=== PATIENT | female | born 1930 | race Hispanic/Latino ===

== ENCOUNTER 2022-01-20 18:24 | Observation (INO) | payer OTHER ==
[~2022-01-20] VITALS: Ht 152.4 cm; Wt 57.8 kg
[2022-01-20 19:00] LABS: BASOPHILS % (AUTO) 0.5 % (0.0-5.0); EOSINOPHILS % (AUTO) 2.5 % (0.0-8.0); LYMPHOCYTES % (AUTO) 21.2 % (21.0-51.0); MEAN CORPUSCULAR HEMOGLOBIN 32.2 pg (27.0-33.0); MEAN CORPUSCULAR HGB CONC 32.6 g/dL (32.0-36.0); MEAN CORPUSCULAR VOLUME 98.7 fL (79-99); MONOCYTES % (AUTO) 7.7 % (3.0-13.0); NEUTROPHILS % (AUTO) 67.9 % (40.0-77.0); PLATELET COUNT (AUTO) 230 K/uL (130-400); RED BLOOD CELL COUNT(AUTO) 3.95 MIL/uL (4.00-5.50); RED CELL DISTRIBUTION WIDTH 13.2 % (11.0-15.5); WHITE BLOOD COUNT (AUTO) 8.2 K/uL (4.8-10.8)
[2022-01-20 19:09] LABS: CREATININE 2.1 mg/dL (0.5-1.5); POTASSIUM 4.7 mmol/L (3.5-5.1)
[2022-01-20 19:18] LABS: INR 1.06 (0.85-1.15); PROTHROMBIN TIME 11.5 SEC (9.6-11.6)
[2022-01-20 19:19] LABS: PARTIAL THROMBOPLASTIN TIME 27.8 SEC (26.3-35.5)
[2022-01-21] VITALS (11 sets, daily range): BP systolic 106–153; BP diastolic 46–78
[2022-01-21] MEDS ORDERED: CEFAZOLIN SODIUM 2 GM in 0.9%NACL 50ML 50 ML IV PRN (08:30)
[2022-01-21] MEDS ORDERED: METO-409 PO (10:56)
[2022-01-21] MEDS ORDERED: FURO20TA4 PO (10:57)
[2022-01-21] MEDS ORDERED: ISOS10TA8 PO (10:58)
[2022-01-21] MEDS ORDERED: LOSA25TA41 PO (10:59)
[2022-01-21] MEDS ORDERED: MEPERIDINE-PF 25 MG/ML SYG ONE (12:51)
[2022-01-21] MEDS ORDERED: MIDAZOLAM HCL 1 MG/ML 2ML VIAL ONE (12:51)
[2022-01-21] MEDS ORDERED: VANCOMYCIN 1G/250ML KIT 500 ML IV ONE (12:51)
[2022-01-21] MEDS ORDERED: LIDOCAINE HCL 1% MDV 50ML VIAL ONE (12:51)
[2022-01-21] MEDS ORDERED: BUPIVACAINE/PF 0.25% 30ML VIAL IJ ONE (12:51)
[2022-01-21] MEDS ORDERED: TRAM50TA4 PO (13:58)
[2022-01-21] MEDS ORDERED: TRAMADOL HCL 50 MG TABLET PO PRN (14:00)
== END 2022-01-21 18:55 | disposition home or self-care (01) ==
LOC: EDH 18:24 → INTOOBSV 20:15 → EDHIP 20:15 → 3CH 01-21 00:24
PROVIDERS: ADMIT Internal Medicine Cardiovascular Disease; ATTEND Internal Medicine Cardiovascular Disease
DX: I49.5 Sick sinus syndrome (principal); Z20.822 Contact with and (suspected) exposure to COVID-19; I12.9 Hypertensive chronic kidney disease with stage 1 through stage 4 chronic kidney disease, or unspecified chronic kidney disease; N18.30 Chronic kidney disease, stage 3 unspecified; G30.9 Alzheimer's disease, unspecified; F02.80 Dementia in other diseases classified elsewhere, unspecified severity, without behavioral disturbance, psychotic disturbance, mood disturbance, and anxiety; E78.5 Hyperlipidemia, unspecified; M19.90 Unspecified osteoarthritis, unspecified site; Z45.018 Encounter for adjustment and management of other part of cardiac pacemaker; Z90.710 Acquired absence of both cervix and uterus; Z79.899 Other long term (current) drug therapy; Z86.73 Personal history of transient ischemic attack (TIA), and cerebral infarction without residual deficits
CPT/HCPCS: 33228; 36415; 80048; 85025; 85610; 85730; 87635; 99284; C1785; G0378 ×7; J2175; J2250; J3370; J3490 ×2; 99156; 99157